=== PATIENT | male | born 1995 | race Caucasian/White ===

== ENCOUNTER 2019-05-16 09:26 | Emergency (ER) | payer SELFPAY ==
[~2019-05-16] VITALS: Ht 170.2 cm; Wt 72.7 kg
[2019-05-16 12:58] VITALS: BP 117/77
== END 2019-05-16 14:03 | disposition home or self-care (01) ==
LOC: EMS 09:28
DX: S82.041A Displaced comminuted fracture of right patella, initial encounter for closed fracture (principal); F17.210 Nicotine dependence, cigarettes, uncomplicated; V09.29XA Pedestrian injured in traffic accident involving other motor vehicles, initial encounter; Y93.01 Activity, walking, marching and hiking; Y92.488 Other paved roadways as the place of occurrence of the external cause; Y99.8 Other external cause status
CPT/HCPCS: 29505